=== PATIENT | male | born 1995 | race Caucasian/White ===

== ENCOUNTER 2017-08-13 10:28 | Emergency (ER) | payer OTHER ==
[2017-08-13 10:50] VITALS: RESP 18; TEMP 99.1
[2017-08-13] MEDS ORDERED: PROPARACAINE 0.5% OPHTH DROPS 15 ML BTL LEFT EYE STA (11:13)
--- NOTE | 2017-08-13 11:34 | ED ---
General Adult HPI - General Chief complaint: Eye Problems Stated complaint: Eye Pain, something in eye Time Seen by Provider: 08/13/17 11:06 Source: patient, RN notes reviewed Mode of arrival: ambulatory Limitations: physical limitation - History of Present Illness Initial comments: 21-year-old male presents to the emergency department with a chief complaint of left eye irritation. Patient states he was chopping wood yesterday and he has had irritation to the left eye since. Patient states that he had a headache changes in vision is just very irritated when he blinks and moves his eye. He worse. Patient denies any other symptoms at this time. Patient states that he was concerned might be something in there is a thought that he should be seen. Patient denies any other symptoms at this time. Patient denies any recent fever , chills, shortness of breath, chest pain, back pain, abdominal pain, nausea vomiting, numbness or tingling, dysuria or hematuria, constipation or diarrhea, headaches or visual changes, or any other current symptoms. - Related Data Previous Rx's Medication Instructions Recorded Erythromycin Ophth Oint [Romycin 1 applic LEFT EYE QID #1 tube 08/13/17 Ophth Oint] Allergies Allergy/AdvReac Type Severity Reaction Status Date / Time pineapple AdvReac Rash/Hives Verified 08/13/17 11:15 Review of Systems ROS Statement: Those systems with pertinent positive or pertinent negative responses have been documented in the HPI. ROS Other: All systems not noted in ROS Statement are negative. Past Medical History Additional Past Medical History / Comment(s): ASTHMA A KID History of Any Multi-Drug Resistant Organisms: None Reported Past Surgical History: No Surgical Hx Reported Past Psychological History: No Psychological Hx Reported Smoking Status: Current every day smoker Past Alcohol Use History: None Reported Past Drug Use History: None Reported General Exam Limitations: physical limitation General appearance: alert, in no apparent distress Head exam: Present: atraumatic, normocephalic, normal inspection Eye exam: Present: PERRL, EOMI, conjunctival injection. Absent: nystagmus ( left eye), periorbital swelling, periorbital tenderness Pupils: Present: normal accommodation ENT exam: Present: normal exam, mucous membranes moist Neck exam: Present: normal inspection. Absent: tenderness, meningismus, lymphadenopathy Respiratory exam: Present: normal lung sounds bilaterally. Absent: respiratory distress, wheezes, rales, rhonchi, stridor Cardiovascular Exam: Present: regular rate, normal rhythm, normal heart sounds. Absent: systolic murmur, diastolic murmur, rubs, gallop, clicks Neurological exam: Present: alert, oriented X3 Psychiatric exam: Present: normal affect, normal mood Skin exam: Present: warm, dry, intact, normal color. Absent: rash Course Vital Signs 08/13/17 10:46 Temperature 99.1 F Pulse Rate 68 Respiratory 18 Rate Blood Pressure 140/70 O2 Sat by Pulse 99 Oximetry Medical Decision Making - Medical Decision Making 21-year-old male presents for left eye irritation after cutting wood.at this time patient underwent a with lamp examination as well as a slit lamp examination. At this time there does appear to be some corneal uptake however there is no foreign body seen. This tenderness is most likely corneal abrasion due to the piece of foreign body that he removed himself yesterday. This and we will start him on eye medication. We did update tetanus. We discussed return for hours all questions. Patient stated that he understood any significant plan. He will be discharged. Disposition Clinical Impression: Injury of conjunctiva and corneal abrasion of left eye without foreign body Disposition: HOME SELF-CARE Condition: Stable Instructions: Corneal Abrasion (ED) Additional Instructions: Please use medication as discussed. Please follow up with family doctor if symptoms have not improved over the next two days. Please return to the emergency room if your symptoms increase or worsen or for any other concerns. Prescriptions: Erythromycin Ophth Oint [Romycin Ophth Oint] 1 applic LEFT EYE QID #1 tube Referrals: Sunny Graham DO [Primary Care Provider] - 1-2 days Can Martinez MD [STAFF PHYSICIAN] - 1-2 days Time of Disposition: 12:10
[2017-08-13] MEDS ORDERED: DIPH,PERTUS(ACELL)TETVAC-LF 0.5 ML VIAL IM ONE (12:01)
[2017-08-13 12:57] VITALS: BP 139/70; PULSE 70
== END 2017-08-13 12:57 | disposition home or self-care (01) ==
LOC: EC 10:28
DX: S05.02XA Injury of conjunctiva and corneal abrasion without foreign body, left eye, initial encounter (principal); R51 Headache; F17.200 Nicotine dependence, unspecified, uncomplicated; Z23 Encounter for immunization; Z91.018 Allergy to other foods; X58.XXXA Exposure to other specified factors, initial encounter
CPT/HCPCS: 90471; 90715; 99283